=== PATIENT | female | born 1985 | race Caucasian/White ===

== ENCOUNTER 2016-03-01 14:24 | Emergency (ER) | payer OTHER ==
[~2016-03-01] VITALS: Ht 160 cm; Wt 61.0 kg
[2016-03-01 14:26] VITALS: BP 112/58; PULSE 113; RESP 16; TEMP 102.9; O2SAT 98
[2016-03-01 15:24] VITALS: BP 114/58; PULSE 112; RESP 20; TEMP 102.6; O2SAT 94
[2016-03-01] MEDS ORDERED: ALPR.25 PO (15:24)
[2016-03-01] MEDS ORDERED: SODIUM CHLOR 0.9% 1000 ML INJ 1,000 ML IV ONE ×2 (15:34)
[2016-03-01] MEDS ORDERED: PIPERACIL-TAZO 4.5 GM PREMIX 100 ML IV STA (15:34)
[2016-03-01] MEDS ORDERED: SODIUM CHLOR 0.9% 1000 ML INJ 100 ML IV ONE (15:34)
[2016-03-01] MEDS ORDERED: VANCOMYCIN INJ 1,000 MG in SODIUM CHLOR 0.9% 250 ML INJ 250 ML IV STA (15:34)
[2016-03-01] MEDS ORDERED: ACETAMINOPHEN 325 MG TAB PO ONE (15:45)
--- NOTE | 2016-03-01 15:55 | RADRPT ---
EXAM DATE/TIME: 03/01/2016 15:48 [facility] COMPARISON: No previous studies available for comparison. INDICATIONS : Chest pains. MEDICAL HISTORY : None. SURGICAL HISTORY : None. ENCOUNTER: Initial ACUITY: 1 day PAIN SCORE: 4/10 LOCATION: Bilateral chest FINDINGS: A single view of the chest demonstrates the lungs to be symmetrically aerated without evidence of mas s, infiltrate or effusion. The cardiomediastinal contours are unremarkable. Osseous structures are intact with a mild dextroscoliosis of the thoracolumbar spine. CONCLUSION: No acute cardiopulmonary process. Tad Rosen MD on March 01, 2016 at 15:52 Board Certified Radiologist. This report was verified electronically.
[2016-03-01 16:12] VITALS: O2SAT 96
[2016-03-01 16:24] LABS: BLOOD, URINE NEG (NEG); GLUCOSE,URINE NEG (NEG); KETONE, URINE NEG (NEG); NITRITE,URINE NEG (NEG); PH, URINE 6.5 (5.0-8.5); URINE COLOR COLORLESS (YELLW/STRAW)
[2016-03-01 16:25] LABS: COMMENT (UR) CATH-CULT NOT IND; CULTURE IF INDICATED CATH CULTURE NOT IND
[2016-03-01 16:31] LABS: BASOPHIL % 0.2 % (0.0-2.0); EOSINOPHIL # 0.3 TH/MM3 (0-0.4); EOSINOPHIL % 3.7 % (0.0-4.0); HEMATOCRIT 32.6 % (35.0-46.0); HEMO FLAGS DIFF FINAL; LYMPHOCYTE # 1.5 TH/MM3 (1.0-4.8); MEAN CELL VOLUME 82.3 FL (80.0-100.0); MEAN CORPUSCULAR HEMOGLOBIN 27.3 PG (27.0-34.0); MEAN CORPUSCULAR HGB CONC 33.2 % (32.0-36.0); MONO % 6.9 % (0.0-8.0); NEUT % 71.2 % (16.0-70.0); PLATELET COUNT 159 TH/MM3 (150-450); RED BLOOD COUNT 3.97 MIL/MM3 (4.00-5.30); RED CELL DISTRIBUTION WIDTH 14.2 % (11.6-17.2); WHITE BLOOD COUNT 8.4 TH/MM3 (4.0-11.0)
[2016-03-01 16:50] LABS: ALT (GPT) 37 U/L (10-53); ANION GAP 8 MEQ/L (5-15); AST (GOT) 29 U/L (15-37); BICARBONATE 27.6 MEQ/L (21.0-32.0); BLOOD UREA NITROGEN 6 MG/DL (7-18); CHLORIDE 99 MEQ/L (98-107); GLOMERULAR FILTRATION RATE 90 ML/MIN (>89); POTASSIUM 3.6 MEQ/L (3.5-5.1); SODIUM (NA) 135 MEQ/L (136-145)
[2016-03-01 16:52] LABS: ALKALINE PHOSPHATASE 60 U/L (45-117); TOTAL BILIRUBIN ADULT 0.2 MG/DL (0.2-1.0)
[2016-03-01 17:00] VITALS: BP 100/52; PULSE 96; RESP 19; TEMP 98.8; O2SAT 96
[2016-03-01] MEDS ORDERED: LIDOCAINE HCL 2% 20 ML VIAL ONE (17:07)
[2016-03-01] MEDS ORDERED: LIDOCAINE HCL 1% 20 ML VIAL INFIL ONE (17:15)
--- NOTE | 2016-03-01 17:15 | PD ---
HPI Chief Complaint: Laceration/Skin Injury Time Seen by Provider: 15:34 Travel History International Travel<30 days: No Contact w/Intl Traveler<30days: No Traveled to known affect area: No History of Present Illness HPI 31-year-old female came to the emergency room with history of fever, cough, chills and a left antecubital abscess from IV drug abuse. Patient says that she has had this abscess for past 2 days but it really got more swollen today when she tried to pop it yesterday. Her temperature in the ER was 102.5. She does not appear to be in a significant distress. [facility] Past Medical History Narrative Medical List of her past medical history as reviewed from the nursing note. Respiratory: Yes (ASTHMA) Social History Tobacco Use: Yes Allergies-Medications (Allergen,Severity, Reaction): Coded Allergies: Animal Dander (Verified Allergy, Intermediate, 03/01/16) sob and itching Comments List of her allergies reviewed from the nursing note. Reported Meds & Prescriptions Reported Meds & Active Scripts Active Bactrim DS (Sulfamethoxazole-Trimethoprim) 800-160 Mg Tab 1 Tab PO BID Reported Xanax (Alprazolam) 0.25 Mg Tab 0.25 Mg PO Q8H PRN Narrative Medication List of her home medications reviewed from the nursing note. Review of Systems Except as stated in HPI: all other systems reviewed are Neg Physical Exam Narrative GENERAL: Awake, alert, mild distress SKIN: Warm and dry. Left antecubital area has a 3 x 3 cm tense, fluctuant, tender abscess with significant surrounding erythema extending up to the mid arm and mid forearm HEAD: Atraumatic. Normocephalic. EYES: Pupils equal and round. No scleral icterus. No injection or drainage. ENT: No nasal bleeding or discharge. Mucous membranes pink and moist. NECK: Trachea midline. No JVD. CARDIOVASCULAR: Regular rate and rhythm. No murmur appreciated. RESPIRATORY: No accessory muscle use. Clear to auscultation. Breath sounds equal bilaterally. GASTROINTESTINAL: Abdomen soft, non-tender, nondistended. Hepatic and splenic margins not palpable. MUSCULOSKELETAL: No obvious deformities. No clubbing. No cyanosis. No edema. NEUROLOGICAL: Awake and alert. No obvious cranial nerve deficits. Motor grossly within normal limits. Normal speech. PSYCHIATRIC: Appropriate mood and affect; insight and judgment normal. Data Data Last Documented VS Vital Signs Date Time Temp Pulse Resp B/P Pulse Ox O2 Delivery O2 Flow Rate FiO2 03/01/16 17:00 98.8 96 19 100/52 96 Room Air Orders Complete Blood Count With Diff (03/01/16 15:34) Comprehensive Metabolic Panel (03/01/16 15:34) Lactic Acid Sepsis Protocol (03/01/16 15:34) Urinalysis - C+S If Indicated (03/01/16 15:34) Influenzae A/B Antigen (03/01/16 15:34) Blood Culture (03/01/16 15:34) Chest, Single Ap (03/01/16 15:34) Blood Glucose (03/01/16 15:34) Ecg Monitoring (03/01/16 15:34) Iv Access Insert/Monitor (03/01/16 15:34) Oximetry (03/01/16 15:34) Oxygen Administration (03/01/16 15:34) Acetaminophen (Tylenol) (03/01/16 15:45) Piperacil-Tazo 4.5 Gm Premix (Zosyn 4.5 (03/01/16 15:34) Vancomycin Inj (Vancomycin Inj) (03/01/16 15:34) Sodium Chlor 0.9% 1000 Ml Inj (Ns 1000 M (03/01/16 15:34) Sodium Chlor 0.9% 1000 Ml Inj (Ns 1000 M (03/01/16 15:34) Sodium Chlor 0.9% 1000 Ml Inj (Ns 1000 M (03/01/16 15:34) Ed Urine Pregnancytest Poc (03/01/16 15:34) Elbow, Limited (Ap&Lat) (03/01/16 ) Lidocaine 1% Inj (Xylocaine 1% Inj) (03/01/16 17:15) Wound Culture And Gram Stain (03/01/16 17:06) Lidocaine 2% Inj (Xylocaine 2% Inj) (03/01/16 17:07) Labs Laboratory Tests Test 03/01/16 03/01/16 15:15 16:15 White Blood Count 8.4 TH/MM3 Red Blood Count 3.97 MIL/MM3 Hemoglobin 10.8 GM/DL Hematocrit 32.6 % Mean Corpuscular Volume 82.3 FL Mean Corpuscular Hemoglobin 27.3 PG Mean Corpuscular Hemoglobin 33.2 % Concent Red Cell Distribution Width 14.2 % Platelet Count 159 TH/MM3 Mean Platelet Volume 8.7 FL Neutrophils (%) (Auto) 71.2 % Lymphocytes (%) (Auto) 18.0 % Monocytes (%) (Auto) 6.9 % Eosinophils (%) (Auto) 3.7 % Basophils (%) (Auto) 0.2 % Neutrophils # (Auto) 6.0 TH/MM3 Lymphocytes # (Auto) 1.5 TH/MM3 Monocytes # (Auto) 0.6 TH/MM3 Eosinophils # (Auto) 0.3 TH/MM3 Basophils # (Auto) 0.0 TH/MM3 CBC Comment DIFF FINAL Differential Comment Urine Color COLORLESS Urine Turbidity CLEAR Urine pH 6.5 Urine Specific Hawkins 1.003 Urine Protein NEG mg/dL Urine Glucose (UA) NEG mg/dL Urine Ketones NEG mg/dL Urine Occult Blood NEG Urine Nitrite NEG Urine Bilirubin NEG Urine Urobilinogen LESS THAN 2.0 MG/DL Urine Leukocyte Esterase NEG Urine RBC LESS THAN 1 /hpf Microscopic Urinalysis Comment CATH-CULT NOT IND Sodium Level 135 MEQ/L Potassium Level 3.6 MEQ/L Chloride Level 99 MEQ/L Carbon Dioxide Level 27.6 MEQ/L Anion Gap 8 MEQ/L Blood Urea Nitrogen 6 MG/DL Creatinine 0.74 MG/DL Estimat Glomerular Filtration 90 ML/MIN Rate Random Glucose 92 MG/DL Calcium Level 8.0 MG/DL Total Bilirubin 0.2 MG/DL Aspartate Amino Transf 29 U/L (AST/SGOT) Alanine Aminotransferase 37 U/L (ALT/SGPT) Alkaline Phosphatase 60 U/L Total Protein 7.3 GM/DL Albumin 3.4 GM/DL Lactic Acid Level 0.8 mmol/L [facility] Medical Decision Making Medical Screen Exam Complete: Yes Emergency Medical Condition: Yes Medical Record Reviewed: Yes Differential Diagnosis Abscess, sepsis, influenza Narrative Course 5:12 PM blood test results of back and within normal limit. Patient was started off on sepsis protocol for antibiotic and fluid. Looking at the blood test results this seems to be a possibility the patient could be discharged home. Waiting for the surgeon to come and do the I&D given the fact that the location of the abscess is in a dangerous area over the neurovascular bundle in her antecubital area. I've spoken initially with Dr. Quach from hand surgery who will admit me know that this kind of an abscess would be under general surgery management. Hence he wanted me to call Gen. surgery. I also spoke with Dr. Wilson from general surgery who will admit me know that it would be hand surgeon should take care of this and hence did not want to take care of the abscess. Dr. Lopez was in the department and he agreed to do the procedure bedside. Currently waiting for him and his further instructions. 5:47 PM x-ray of the elbow and the upper extremity looked to be within normal limit. No gas in the soft tissue. Procedures EKG Prior to Arrival: No Physician Communication Physician Communication Dr. Peña Diagnosis Primary Impression: Abscess Additional Impressions: IV drug abuse Fever Qualified Code: R50.9 - Fever, unspecified fever cause Referrals: Primary Care Physician 2 days Additional Instructions: Please follow-up with your primary care in couple days. Please return to the ER if the condition worsens at the wound looks worse. Take the antibiotic as per the prescription direction. Do not use IV needles. Med/Other Pt SpecificInfo: Prescription(s) given Scripts Sulfamethoxazole-Trimethoprim (Bactrim DS)800-160 Mg Tab1 Tab PO BID #20 TAB Ref 0 Prov:Abhijeet Kay MD 03/01/16 Disposition: 01 DISCHARGE HOME Condition: Stable Abhijeet Kay MD Mar 01, 2016 17:15
[2016-03-01] MEDS ORDERED: BACT800T5 PO (17:39)
--- NOTE | 2016-03-01 17:39 | RADRPT ---
EXAM DATE/TIME: 03/01/2016 16:57 [facility] COMPARISON: No previous studies available for comparison. INDICATIONS : Left elbow pain from abscess in antecubital area. MEDICAL HISTORY : None. SURGICAL HISTORY : None. ENCOUNTER: Initial ACUITY: 2 days PAIN SCORE: 8/10 LOCATION: proximal medial side of elbow. FINDINGS: Limited AP and lateral views of the left elbow were obtained and demonstrate soft tissue swelling wit h no radiopaque foreign body. Bony structures are intact with no evidence of fracture. There is no ev idence of a joint effusion. CONCLUSION: Soft tissue swelling with no underlying bony abnormality. Bassem Mccallum MD on March 01, 2016 at 17:37 Board Certified Radiologist. This report was verified electronically.
--- NOTE | 2016-03-12 10:34 | MP ---
cc: ANT LAZAR MD DATE OF SURGERY: 03/02/2016 PREOPERATIVE DIAGNOSIS: Antecubital abscess, IV drug abuse. POSTOPERATIVE DIAGNOSIS Antecubital abscess, IV drug abuse. OPERATIVE PROCEDURE I&D of the abscess. SURGEON Dr. Lazar. ANESTHESIA 1% Xylocaine. ESTIMATED BLOOD LOSS 5 ccs. PROCEDURE The patient was prepped and draped in usual fashion. The area was infiltrated with 1% Xylocaine and then incision was made over the most prominent antecubital abscess area. About 7 ccs of pus was drained which is cultured. Some skin is debrided and the area is packed with gauze and dressing applied. The patient tolerated the procedure well. Ant Lazar SJ/TLL /1:56 PM /10:29 AM
== END 2016-03-01 19:26 | disposition home or self-care (01) ==
LOC: NEPE 14:24
DX: L02.414 Cutaneous abscess of left upper limb (principal); B95.4 Other streptococcus as the cause of diseases classified elsewhere; B95.62 Methicillin resistant Staphylococcus aureus infection as the cause of diseases classified elsewhere; F19.10 Other psychoactive substance abuse, uncomplicated; R50.9 Fever, unspecified; R05 Cough; Z87.09 Personal history of other diseases of the respiratory system; Z72.0 Tobacco use
CPT/HCPCS: 10061; 71010; 73070; 80053; 81001; 83605; 84703; 85025; 86403; 87040; 87070; 87186; 87804; 96365; 96368; 99283; J2543; J3370; J7030; J7050